=== PATIENT | male | born 1965 | race Caucasian/White ===

== ENCOUNTER 2017-09-23 09:51 | Observation (INO) | payer OTHER ==
[2017-09-23] MEDS ORDERED: Diltiazem IV* 5 MG/ML 5 ML VIAL (for loading dose/IV Push) (25 MG) IV SLOW PU ONE (10:39)
[2017-09-23 10:46] LABS: Mean Corpuscular HGB Conc 34 g/dl (31-36)
[2017-09-23 10:48] LABS: ABS Basophils 0.1 10^3/ul (0-0.2); ABS Eosinophils 0.2 10^3/ul (0-0.6); ABS Lymphocytes 1.5 10^3/ul (1.0-4.8); ABS Monocytes 0.9 10^3/ul (0-0.8); ABS Neutrophils 4.9 10^3/ul (1.5-7.7); ABS Nucleated RBC 0.02 10^3/ul; Hematocrit 44 % (42-52); Hemoglobin 15.2 g/dl (14.0-18.0); Lymphocyte % 19.7 % (25-47); Mean Corpuscular Hemoglobin 30 pg (27-31); Mean Corpuscular Volume 89 fL (80-94); Mean Platelet Volume 8 um3 (7.4-10.4); Nucleated Red Blood Cells % 0.2; Platelet Count 211 10^3/ul (150-450); Red Blood Count 4.98 10^6/ul (4.0-5.4); Red Cell Distribution Width 14 % (10.5-15); White Blood Count 7.7 10^3/ul (3.5-10.8)
--- NOTE | 2017-09-23 11:03 | RAD ---
HISTORY: Palpitation COMPARISONS: None VIEWS: 2: frontal portable view of the chest at 10:10 AM FINDINGS: LINES AND TUBES: None. CARDIOMEDIASTINAL SILHOUETTE: The cardiomediastinal silhouette is normal for portable technique. PLEURA: The costophrenic angles are sharp. No pleural abnormalities are noted. LUNG PARENCHYMA: The lungs are clear. ABDOMEN: The upper abdomen is clear. There is no subphrenic gas. BONES AND SOFT TISSUES: No bone or soft tissue abnormalities are noted. IMPRESSION: NO ACTIVE CARDIOPULMONARY DISEASE.
[2017-09-23 11:07] LABS: EGFR Non-African American 81.6 (>60)
[2017-09-23] MEDS: Apixaban* 5 MG TAB PO SCH ×2 (13:10→21:06)
[2017-09-23] MEDS: Metoprolol Tartrate TAB* 25 MG PO SCH ×2 (13:10→21:06)
[2017-09-23] MEDS ORDERED: Perflutren Lipid Microsphere* 3 ML VIAL ONE (13:28)
--- NOTE | 2017-09-23 15:22 | ECHO ---
Patient: ENIO BARTON [facility] Rec#: [id number] : 1965 Date: 09/23/2017 Age: 52y Height: 182.88 cm / 72.0 in Weight: 136.08 kg / 299.9 lbs Sex: M BSA: 2.53 Room#: 453 Admit Date#: 09/23/2017 Type: Inpatient Referring: Sushil Thompson MD Reading: Sushil Thompson MD Licensing Representative: Aditi CarsonCROWN[facility],RD[facility] Transthoracic Echocardiogram Indication: Aflutter BP: 149/74 HR: 131 Rhythm: A-Flutter Findings History: HTN Technical Comments: The study is technically limited due to poor acoustic windows. Left Ventricle: The left ventricular chamber size is normal. Mild to moderate concentric left ventricular hypertrophy is observed. Mild global hypokinesis of the left ventricle is observed. There is mildly decreased left ventricular systolic function. The estimated ejection fraction is 45-50%. The assessment of diastolic function is non-diagnostic. Left Atrium: The left atrium is moderately dilated. Right Ventricle: The right ventricle wall thickness is moderately increased. The right ventricular cavity size is normal. The right ventricular global systolic function is normal. Right Atrium: The right atrium is mild to moderately dilated. Aortic Valve: There is no evidence of aortic valve thickening. Systolic excursion of the aortic valve is normal. There is a trace of aortic regurgitation. There is no evidence of aortic stenosis. Mitral Valve: The mitral valve leaflets appear normal. There is no evidence of mitral regurgitation. There is no evidence of mitral stenosis. Tricuspid Valve: The tricuspid valve leaflets are normal. There is trace tricuspid regurgitation. No pulmonary hypertension is noted. Pulmonic Valve: The pulmonic valve appears normal. There is a trace pulmonic regurgitation. Pericardium: There is no significant pericardial effusion. Aorta: There is moderate dilatation of the ascending aorta.4.2 cm There is mild dilatation of the aortic arch. There is mild dilatation of the aortic root. Pulmonary Artery: The main pulmonary artery is not well visualized. Venous: The inferior vena cava appears normal in size. There is a greater than 50% respiratory change in the inferior vena cava dimension. Contrast: Definity was used to optimize study. A total of 2.5 ml was used Summary: There was not any prior study for comparison. Conclusions Mild to moderate concentric left ventricular hypertrophy is observed. Mild global hypokinesis of the left ventricle is observed. The estimated ejection fraction is 50%. The assessment of diastolic function is non-diagnostic. The right ventricular global systolic function is normal. Systolic excursion of the aortic valve is normal. There is a trace of aortic regurgitation. There is no evidence of mitral regurgitation. There is trace tricuspid regurgitation. No pulmonary hypertension is noted. There is moderate dilatation of the ascending aorta.4.2 cm Measurements Name Value Normal Range RVIDd (AP) 2D 3.2 cm (0.9 - 2.6) RVDdMajor (2D) 3.1 cm (2.2 - 4.4) RAd ISD 4CH 6 cm (3.4 - 4.9) RA (A4C)W 4.8 cm (2.9 - 4.6) IVSd (2D) 1.4 cm (0.6 - 1) LVPWd (2D) 1.3 cm (0.6 - 1) LVIDd (2D) 4.1 cm (3.6 - 5.4) LVIDs (2D) 3.5 cm - LV FS (2D) 15 % (25 - 45) Aortic Annulus 2.3 cm (1.4 - 2.6) Ao root diameter (2D) 4 cm (2.1 - 3.5) Ascending Ao 4.2 cm (2.1 - 3.4) Aortic arch 3.9 cm (1.8 - 3.4) LA dimension (AP) 2D 5.2 cm (2.3 - 3.8) LAd ISD 4CH 6.3 cm (2.9 - 5.3) LA ISD 4CH W 4.1 cm (2.5 - 4.5) Name Value Normal Range LA ESV SP 4CH (A/L) 58.39 ml - LA ESV SP 4CH (MOD) 53.37 ml - Name Value Normal Range MV E-wave Vmax 0.9 m/sec - MV deceleration time 64 msec - LV lateral e' Vmax 0.1 m/sec - LV E:e' lateral ratio 9 ratio - Name Value Normal Range AV Vmax 1 m/sec - AV peak gradient 4 mmHg - LVOT Vmax 0.9 m/sec - LVOT peak gradient 3.2 mmHg - Name Value Normal Range TR Vmax 2.4 m/sec - TR peak gradient 23 mmHg - RAP 3 mmHg - RVSP 26 mmHg - IVC diameter 2 cm - Name Value Normal Range PV Vmax 0.6 m/sec - PV peak gradient 1.4 mmHg -
--- NOTE | 2017-09-23 20:33 | CONS ---
CARDIOLOGY CONSULTATION:/HISTORY AND PHYSICAL DATE OF CONSULT: 09/23/17 INDICATION FOR CONSULTATION: Atrial flutter. HISTORY OF PRESENT ILLNESS: The patient is a 52-year-old gentleman with a history of hypertension, sleep apnea, obesity, who went to [facility] today because of a head cold. The patient states that he has been having cough and runny nose for approximately 6 days. He had no other complaints. He had no fevers or chills. He had no palpitations. No lightheadedness, dizziness, or syncope. No angina. On arrival to [facility], his heart rate was 150 and an EKG showed atrial flutter with 2:1 conduction. The patient was transported over to the emergency room. In speaking with the patient, the patient states that he really has felt well for the past week except for this head cold. He denies any history of arrhythmia. He denies any cardiac history. PAST MEDICAL HISTORY: Significant for obesity, hypertension, and sleep apnea. PAST SURGICAL HISTORY: None. OUTPATIENT MEDICATIONS: 1. Norvasc 10 mg a day. 2. Omeprazole 20 mg a day. ALLERGIES: To PENICILLIN. SOCIAL HISTORY: He denies tobacco use. He drinks 12 to 18 beers a day. He does not get any regular exercise. He is . He works as a salesman. He has 3 daughters. REVIEW OF SYSTEMS: Negative for fevers and chills. Negative for changes in bowel or bladder habits. Negative for changes in weight. Other 12-point review is negative. PHYSICAL EXAM: Height is 6 feet 1 inch, weight is 300 pounds. Heart rate is 127, blood pressure 142/89, respiratory rate is 14, oxygen saturation 97% on room air, temperature 98.5. Sclerae anicteric. Oropharynx is pink without erythema. Carotids are 2+ without bruits. JVD is normal. Thyroid is normal. Cardiac Exam: Tachycardic. S1, S2 without any murmurs, rubs, or gallops. Lungs are clear to auscultation bilaterally. There is no dullness to percussion. Abdomen is obese, soft, nontender, nondistended with normoactive bowel sounds. Extremities show no edema. He has 2+ pulses throughout. The patient is awake, alert, and oriented. He moves all 4 extremities equally. LABORATORY STUDIES: CBC within normal limits. Chemistries within normal limits. AST and ALT are normal. Troponins are negative x2. TSH 1.73. IMPRESSION: This is a 52-year-old gentleman with a history of hypertension, sleep apnea, who went to [facility] because of a head cold and was found to be in atrial flutter with a heart rate of 150. It is unclear how long he has been in this abnormal rhythm. The patient did get an echocardiogram today, which showed low normal LV systolic function, ejection fraction of 50%, no evidence of valvular abnormalities. For now, recommendation is to start anticoagulation. The patient will be started on beta-blue for heart rate control. The patient will be considered for AMANDA cardioversion. [id number]/[facility] #: [id number] LM
[2017-09-24] MEDS ORDERED: amLODIPine TAB* 5 MG PO ONE (05:00)
[2017-09-24] MEDS ORDERED: Metoprolol Tartrate IV* 1 MG/ML 5 ML VIAL IV ONE (05:00)
[2017-09-24] MEDS ORDERED: Omeprazole CAP* 20 MG PO SCH (07:30)
[2017-09-24] MEDS ORDERED: amLODIPine TAB* 5 MG PO SCH (09:00)
[2017-09-24] MEDS ORDERED: Naloxone* 0.4 MG/ML 1 ML VIAL ONE (09:19)
[2017-09-24] MEDS ORDERED: Lidocaine 2% VISCOUS* 15 ML UDC ONE (09:19)
[2017-09-24] MEDS ORDERED: Flumazenil* 0.1 MG/ML 5 ML MDV ONE (09:19)
[2017-09-24] MEDS ORDERED: fentaNYL* 50 MCG/ML 2 ML VIAL (100 MCG VIAL) ONE ×2 (09:19→09:21)
[2017-09-24] MEDS ORDERED: Midazolam* 1 MG/ML 10 ML VIAL (10 MG) ONE (09:20)
--- NOTE | 2017-09-24 11:04 | CARD ---
CC: Dr. Thompson ELECTRICAL CARDIOVERSION: DATE OF PROCEDURE: 09/24/17 PROCEDURE: Electrical cardioversion. The patient had undergone transesophageal echo prior to the procedure. He required a total of 150 mc g of fentanyl and 15 mg of Versed for the transesophageal echo. The patient had an additional 2 mg of Versed following the transesophageal echo for cardioversion. DESCRIPTION OF PROCEDURE: The indications, risks, and benefits for both procedures had been discusse d in depth with the patient. A time-out procedure was called. A transesophageal echo was done and n o thrombus was seen in the appendage and a decision was made to proceed with electrical cardioversion . Using AP patches, 120 joules was synchronously delivered across the chest wall with successful cardio version from atrial flutter with a rapid ventricular rate of around 125 beats a minute to normal sinu s rhythm. He was hemodynamically stable throughout the procedure, transient drop in saturations whic h responded to 2 L nasal cannula and head positioning. He is currently in sinus rhythm at 91 beats a minute, oxygen saturation 97% on 2 L nasal cannula, respiratory rate is 19, and blood pressure 138/8 8. There were no complications. CONCLUSION: Successful electrical cardioversion from atrial flutter to normal sinus rhythm. [id number]/[facility] #: [id number]
[2017-09-24] MEDS: Apixaban* 5 MG TAB PO SCH (11:15)
[2017-09-24] MEDS: Metoprolol Tartrate TAB* 25 MG PO SCH (11:15)
[2017-09-24 13:23] VITALS: BP 108/76
--- NOTE | 2017-09-24 14:55 | TEE ---
Patient: ENIO BARTON [facility] Rec#: [id number] : 1965 Date: 09/24/2017 Age: 52y Height: 185 cm / 72.8 in Weight: 136 kg / 299.7 lbs Sex: M BSA: 2.55 Room#: 453 Admit Date#: 09/23/2017 Type: Inpatient Referring: Sushil Thompson MD Performing: Vangie Pearson MD Reading: Vangie Pearson MD Forepart Reducer: Aditi Carson RD,RDMS Nurse: Belen Vela RN Transesophageal Echocardiogram Indication: AFLUTTER BP: 143/104 Rhythm: A-Flutter Findings History: HTN, obesity Technical Comments: The study quality is good. Left Ventricle: The left ventricular chamber size is normal. Mild concentric left ventricular hypertrophy is observed. Left ventricular systolic function is at the lower limits of normal. The estimated ejection fraction is 45-50%. The assessment of diastolic function is non-diagnostic. Left Atrium: The left atrium is mild to moderately dilated. Spontaneous echo contrast is present in the left atrium cavity and appendage. There is no thrombus visualized in the left atrial appendage. Right Ventricle: The right ventricular cavity size is normal. The right ventricular global systolic function is low normal. Right Atrium: The right atrium is mildly dilated. A patent foramen ovale is demonstrated by agitated contrast. There is evidence of an atrial septal aneurysm. Aortic Valve: The aortic valve is trileaflet. There is no evidence of aortic valve thickening. Systolic excursion of the aortic valve is normal. There is a trace of aortic regurgitation. There is no evidence of aortic stenosis. Mitral Valve: The mitral valve leaflets appear normal. There is trace to mild mitral regurgitation. There is no evidence of mitral stenosis. Tricuspid Valve: The tricuspid valve leaflets are normal. There is trace tricuspid regurgitation. Pulmonic Valve: The pulmonic valve appears normal. There is no evidence of pulmonic regurgitation. Pericardium: There is no significant pericardial effusion. Aorta: There is mild dilatation of the ascending aorta. There is mild dilatation of the aortic root. Pulmonary Artery: The main pulmonary artery appears normal. Venous: The inferior vena cava appears normal. The flow pattern of the pulmonary veins appear normal. All 4 well visualized The superior vena cava appears normal. AMANDA Procedures: All standard views were attempted within the limitations of patient tolerance and safety. History and physical as well as labs were reviewed. The patient was in a fasting state. Risks and benefits of the procedure, including alternatives, were discussed and written informed consent was obtained. The patient and/or their health care physician relations representative expressed understanding of the procedure, risks and benefits. Baseline and continuous monitoring of blood pressure, heart rate, pulse oximetry and heart rhythm was performed throughout the procedure. The appropriate time-out procedure was performed as per [facility] protocol. The patient was placed in the left lateral decubitus position. The patient's posterior pharynx was anesthetized with 20ml of 2% viscous lidocaine. The patient received IV Midazolam with a total dose of 15 mg. The patient received IV Fentanyl with a total dose of 150 mcg An oral bite block was inserted for protection of oral dentition. The multiplane transesophageal echocardiogram probe was inserted through the posterior oropharynx and advanced into the esophagus without difficulty. Multiple 2D images were obtained of the heart and its related structures. Color flow Doppler was used for evaluation. Spectral Doppler was also used. The atrial septum was interrogated with color flow Doppler. At the conclusion of the procedure the probe was removed with continuous suction without complications. The patient tolerated the procedure with no apparent complications. Contrast: Intravenous agitated saline contrast was used to assess intracardiac shunting. Conclusions The patient was in atrial flutter with a rapid ventricular rate throughout the study. Mild concentric left ventricular hypertrophy is observed. Left ventricular systolic function is at the lower limits of normal. The estimated ejection fraction is 45-50%. The right ventricular global systolic function is low normal. The left atrium is mild to moderately dilated. There is no thrombus visualized in the left atrial appendage. Spontaneous echo contrast is present in the left atrium cavity and appendage. A patent foramen ovale is demonstrated by agitated contrast. There is a trace of aortic regurgitation. There is trace to mild mitral regurgitation. There is trace tricuspid regurgitation. There is mild dilatation of the ascending aorta: 3.7 cm. Compared with transthoracic echo of 09/23/17, EF is stable, MR newly noted, PFO newly noted. aorta diameter on that study measured at 4.2 cm. Measurements Name Value Normal Range Aortic Annulus 2 cm (1.4 - 2.6) Ao root diameter (2D) 3.8 cm (2.1 - 3.5) Ascending Ao 3.7 cm (2.1 - 3.4) Name Value Normal Range MV E-wave Vmax 0.7 m/sec - MV deceleration time 70 msec -
--- NOTE | 2017-09-25 06:14 | DS ---
CC: Dr. Sushil Thompson * DISCHARGE SUMMARY: DATE OF ADMISSION: DATE OF DISCHARGE: 09/24/17 HISTORY OF PRESENT ILLNESS: Mr. Cheema is a 52-year-old gentleman with a past medical history of hypertension, obesity, and sleep apnea. The patient had had several weeks of cold symptoms. He started with a runny nose, rhinorrhea, cough and just was not getting better and he presented to [facility] because of this and was found to be tachycardic and EKG was consistent with atrial flutter. He was advised to come to the emergency department and ECGs here also confirmed atrial flutter with a rapid ventricular response. The patient underwent a transthoracic echo. Metoprolol was added to his outpatient medications of Norvasc and omeprazole, was improved, but not completely controlled ventricular rate. Today, the day of discharge after being placed on blood thinners overnight, the patient underwent successful transesophageal echo-guided cardioversion and he says he feels much better now that he is in sinus rhythm. He thinks his breathing and congestion is now better. His concurs that he seems to look a lot better than he did before admission. PAST MEDICAL HISTORY: The patient has a past medical history of: 1. Hypertension. 2. Sleep apnea (per chart, the patient denies). 3. Obesity. OUTPATIENT MEDICATIONS: Included: 1. Norvasc 10 mg a day. 2. Omeprazole. ALLERGIES: PENICILLIN. SOCIAL HISTORY: He was drinking 12 to 18 beers a day. He states over the last 6 months or so, he is put on over 20 pounds and has not exercise regularly in a month. He is with a supportive . PHYSICAL EXAMINATION: Exam at discharge, the patient is 6 feet 1 inch, weighs 316 pounds with a BMI of 42. Vitals post cardioversion showed a pulse of 80, blood pressure 108/76, sats 97% on room air, and T-max at 4 in the morning this morning was 99.1. General Appearance: Very overweight, predominantly centripetally obese, older middle-aged gentleman, seated in no acute distress. Psychologically, pleasant, cooperative, jovial. Neurologically, awake, alert, oriented to person, place, and time. Cranial nerves II through XII intact. Grossly normal sensory and motor function in the upper and lower extremities and normal gait. Skin: Warm, dry. No cyanosis or rashes. Age-appropriate changes. Respirations are distant, but clear. No wheezing, rales, or rhonchi. Coronary: S1, S2, regular, distant. No murmurs appreciated. Abdomen: Rotund. Active bowel sounds, soft and nontender. Lower extremities are free of edema and warm. DIAGNOSTIC STUDIES/LAB DATA: White count 7.7, hemoglobin 15.2, hematocrit 44, platelets 211, mild increase in monos noted. Sodium 133, potassium 4.3, chloride 100, bicarb 25, BUN 11, creatinine 0.97, glucose 119, lactic acid 1.3. ALT is 17. Troponin #1 0.01, #2 0.00, troponin #3 0.01. TSH 1.73 and free T4 is 0.83. Transesophageal echo done today showed mild left ventricular hypertrophy with an ejection fraction of 45% to 50%. RV systolic function was in the low range of normal. The left atrium was enlarged. No thrombus was noted in the left atrial appendage, although there was some spontaneous contrast. A patent foramen ovale was seen with a bubble study. All valves showed good excursion, he had trace aortic insufficiency, [id number] mitral insufficiency, trace tricuspid insufficiency, mild dilatation of the ascending aorta at 3.7 cm. A 12-lead ECG on admission on 09/23 at 10 in the morning showed typical atrial flutter with 2:1 block and a ventricular rate of 147 beats a minute, QRS axis + 60, normal intraventricular conduction times, normal ST segments. A 12-lead ECG today done status post cardioversion showed normal sinus rhythm, 95 beats a minutes, QRS axis +60, normal AV and IV conduction times, and normal ST segments, corrected QT interval 447 milliseconds. IMPRESSION: In summary, Mr. Randy Cheema is a 52-year-old gentleman, who presented with atrial flutter of uncertain duration as he is unaware he was in it. He may have had indirect symptoms of persistent shortness of breath. Flutter risks include his heavy beer drinking, age, morbid obesity, possible sleep apnea, recent respiratory infection. On discharge, he was strongly advised to avoid drinking completely for at least a week and then to cut way down to a maximum of 6 ounce of beer a night or equivalent. The above potential contributions to his dysrhythmia were discussed in depth in the presence of his and optimization of diet and lifestyle in general were discussed as well. He will be discharged home on Norvasc 10 mg a day. His omeprazole with a new addition of Toprol-XL 25 mg a day and Eliquis 5 mg b.i.d. with tentative plans to leave anticoagulation on for 1 month. The patient had asked questions about exercise and he turns out he takes Cialis , I okayed both. He will follow up with Dr. Thompson within 1 month and noticed to call at anytime with any questions or recurrence of the symptoms that brought him in. [id number]/[facility] #: [id number] MTDD
--- NOTE | 2017-10-09 10:29 | ED ---
Sylvester Gonzales Angela scribed for Noel Hernández MD on 09/23/17 at 1034 . Palpitations / Dysrhythmia - HPI Summary HPI Summary: This pt is a 52 y/o male presenting to [facility] referred by [facility] for rapid heart rate. Pt notes he has had a cough, sinus congestion, cold sweats x12 days. He reports a productive cough with a lot of sputum. Pt has been taking a tussin cough medicine with mild relief. He states that he has come chest pain secondary to cough. Pt has never had rapid palpitations in the past. He currently denies chest pressure, tightness, SOB, fatigue, lightheadedness, dizziness. Pt states he has not eaten this morning or taken any of his medications. Pt is currently on omeprazole and amlodipine. PMHx includes HTN , torn bicep repair on right arm, bilateral meniscus repairs, pin to right thumb. - History of Current Complaint Chief Complaint: EDDysrhythmPalp Hx Obtained From: Patient Onset/Duration: Lasting Hours, Still Present Timing: Constant Severity Currently: Severe Character: Fast Aggravating: Nothing Alleviating: Nothing Associated Signs & Symptoms: Negative - Allergy/Home Medications Allergies/Adverse Reactions: Allergies Allergy/AdvReac Type Severity Reaction Status Date / Time Penicillins Allergy Unknown Verified 09/23/17 10:26 Reaction Details Sulfa Antibiotics Allergy Rash And Verified 09/23/17 10:27 Itching Home Medications: Home Medications Omeprazole CAP* [Prilosec CAP* 20 MG] 20 mg PO DAILY 09/23/17 [History Confirmed 09/23/17] amLODIPine TAB* [Norvasc 5 mg TAB*] 5 mg PO DAILY 09/23/17 [History Confirmed ] PMH/Surg Hx/FS Hx/Imm Hx Endocrine/Hematology History: Denies: Hx Diabetes Cardiovascular History: Reports: Hx Hypertension - Surgical History Surgery Procedure, Year, and Place: torn bicep repair on right arm. bilateral meniscus repairs. pin to right thumb. Infectious Disease History: No Infectious Disease History: Denies: Traveled Outside the [place] in Last 30 Days - Family History Known Family History: Positive: Other - Father: afib, palpitations - Social History Alcohol Use: Weekly Alcohol Amount: 5 days / week Substance Use Type: Reports: None Smoking Status (MU): Never Smoked Tobacco Review of Systems Positive: Skin Diaphoresis - cold sweats. Negative: Fever, Chills, Fatigue Negative: Erythema ENT: Other - sinus congestion Negative: Sore Throat Positive: Palpitations - rapid heart rate, Chest Pain - secondary to cough Positive: Cough. Negative: Shortness Of Breath Negative: Abdominal Pain, Vomiting, Nausea Negative: dysuria, hematuria Negative: Myalgia, Edema Negative: Rash Neurological: Other - NEG: dizziness All Other Systems Reviewed And Are Negative: Yes Physical Exam - Summary Physical Exam Summary: Constitutional: Well-developed, Well-nourished, Alert. (-) Distressed Skin: Warm, Dry HENT: Normocephalic; Atraumatic Eyes: Conjunctiva normal Neck: Musculoskeletal ROM normal neck. (-) JVD, (-) Stridor, (-) Tracheal deviation Cardio: Rhythm regular, rate normal, Heart sounds normal; Intact distal pulses; The pedal pulses are 2+ and symmetric. Radial pulses are 2+ and symmetric. (-) Murmur Pulmonary/Chest wall: Effort normal. (-) Respiratory distress, (-) Wheezes, (-) Rales Abd: Soft, (-) Tenderness, (-) Distension, (-) Guarding, (-) Rebound Musculoskeletal: (-) Edema Lymph: (-) Cervical adenopathy Neuro: Alert, Oriented x3 Psych: Mood and affect Normal Triage Information Reviewed: Yes Vital Signs On Initial Exam: Initial Vitals Temp Pulse Resp BP Pulse Ox 98.5 F 154 20 143/121 98 09/23/17 09:55 09/23/17 09:55 09/23/17 09:55 09/23/17 09:55 09/23/17 09:55 Vital Signs Reviewed: Yes - Zohaib Coma Scale Coma Scale Total: 15 Diagnostics - Vital Signs Vital Signs Temp Pulse Resp BP Pulse Ox 09/23/17 10:10 149 20 149/74 98 09/23/17 10:07 102 20 100 09/23/17 09:55 98.5 F 154 20 143/121 98 - Laboratory Lab Results: Lab Results 09/23/17 09/23/17 09/23/17 Range/Units 10:15 10:15 10:15 WBC 7.7 (3.5-10.8) 10^3/ul RBC 4.98 (4.0-5.4) 10^6/ul Hgb 15.2 (14.0-18.0) g/dl Hct 44 (42-52) % MCV 89 (80-94) fL MCH 30 (27-31) pg MCHC 34 (31-36) g/dl RDW 14 (10.5-15) % Plt Count 211 (150-450) 10^3/ul MPV 8 (7.4-10.4) um3 Neut % (Auto) 64.1 (38-83) % Lymph % (Auto) 19.7 L (25-47) % [place] % (Auto) 12.4 H (1-9) % Eos % (Auto) 3.0 (0-6) % Baso % (Auto) 0.8 (0-2) % Absolute Neuts (auto) 4.9 (1.5-7.7) 10^3/ul Absolute Lymphs (auto) 1.5 (1.0-4.8) 10^3/ul Absolute Monos (auto) 0.9 H (0-0.8) 10^3/ul Absolute Eos (auto) 0.2 (0-0.6) 10^3/ul Absolute Basos (auto) 0.1 (0-0.2) 10^3/ul Absolute Nucleated RBC 0.02 10^3/ul Nucleated RBC % 0.2 Sodium 133 (133-145) mmol/L Potassium 4.3 (3.5-5.0) mmol/L Chloride 100 L (101-111) mmol/L Carbon Dioxide 25 (22-32) mmol/L Anion Gap 8 (2-11) mmol/L BUN 11 (6-24) mg/dL Creatinine 0.97 (0.67-1.17) mg/dL Est GFR ( Amer) 104.9 (>60) Est GFR (Non-Af Amer) 81.6 (>60) BUN/Creatinine Ratio 11.3 (8-20) Glucose 119 H (70-100) mg/dL Lactic Acid 1.3 (0.5-2.0) mmol/L Calcium 9.8 (8.6-10.3) mg/dL Magnesium 2.0 (1.9-2.7) mg/dL Total Bilirubin 0.50 (0.2-1.0) mg/dL AST 20 (13-39) U/L ALT 17 (7-52) U/L Alkaline Phosphatase 73 (34-104) U/L Troponin I 0.01 (<0.04) ng/mL Total Protein 8.1 (6.4-8.9) g/dL Albumin 4.4 (3.2-5.2) g/dL Globulin 3.7 (2-4) g/dL Albumin/Globulin Ratio 1.2 (1-3) TSH 1.73 (0.34-5.60) mcIU/mL Free T4 0.83 (0.61-1.12) ng/dL Result Diagrams: 09/23/17 10:15 09/23/17 10:15 Lab Statement: Any lab studies that have been ordered have been reviewed, and results considered in the medical decision making process. - Radiology Chest XR Xray Interpretation: No Acute Changes - IMPRESSION: No active cardiopulmonary disease. Dr. Hernández has reviewed this radiology report. Radiology Interpretation Completed By: Radiologist - EKG 10:08 Cardiac Rate: Tachycardia EKG Rhythm: Atrial Flutter - at 147 bpm EKG Interpretation: with 2:1 AV block Course/Dx - Course Course Of Treatment: This pt is a 52 y/o male presenting to [facility] referred by [facility] for rapid heart rate. Pt notes he has had a cough, sinus congestion, cold sweats x12 days. He reports a productive cough with a lot of sputum. Pt has been taking a tussin cough medicine with mild relief. He states that he has come chest pain secondary to cough. Pt has never had rapid palpitations in the past. He currently denies chest pressure, tightness, SOB, fatigue, lightheadedness, dizziness. Pt states he has not eaten this morning or taken any of his medications. Pt is currently on omeprazole and amlodipine. Chest XR shows no active cardiopulmonary disease. EKG shows atrial flutter at 147 bpm with 2:1 AV block. In the ED course, the pt was given cardizem and 1L NS bolus. I discussed the pt's case with Dr. Thompson, cardiolgist, who will admit the pt. - Diagnoses Provider Diagnoses: Atrial flutter with rapid ventricular response - Physician Notifications Discussed Care Of Patient With: Sushil Thompson Time Discussed With Above Provider: 10:39 Instructed by Provider To: Other - I discussed the pt's case with Dr. Thompson, who will admit the pt. - Critical Care Time Critical Care Time: 30-74 min - 45 minutes Discharge - Discharge Plan Condition: Stable Disposition: ADMITTED TO [facility] documentation as recorded by the Sylvester arnold Angela accurately reflects the service I personally performed and the decisions made by me, Noel Hernández MD.
== END 2017-09-24 16:26 | disposition home or self-care (01) ==
LOC: ED 09:51 → MEDTELE 10:43
PROVIDERS: ADMIT Specialist; ATTEND Specialist
DX: I48.92 Unspecified atrial flutter (principal); I10 Essential (primary) hypertension; E66.9 Obesity, unspecified; G47.30 Sleep apnea, unspecified; Z88.0 Allergy status to penicillin; Z68.41 Body mass index [BMI] 40.0-44.9, adult
CPT/HCPCS: 36415; 71010; 80053; 83605; 83735; 84439; 84443; 84484; 85025; 87040; 92960; 93005; 93306; 93312; 93325; 99156; 99157; 99284; A9270-GY; C8929; G0378; J2250; J2310; J3010; J3490

== ENCOUNTER 2024-06-18 06:38 | Observation (INO) ==
[~2024-06-18 06:38] MED LIST: Metoclopramide 5 MG/ML VIAL (10 mg) IV PRN; NS 0.45% 1000 ml BAG 1,000 ML IV SCH; Naloxone 0.4 mg VIAL 0.4 mg/ml 1 ml VIAL IV PRN; Ondansetron 4 mg VIAL 2 MG/ML 2 ml VIAL IV PRN; fentaNYL 100 mcg/2 ml 50 MCG/ML VIAL IV PRN
[2024-06-18 07:44] LABS: Rapid COVID-19 Molecular Undetected (Undetected)
[2024-06-18] MEDS ORDERED: Tranexamic Acid 1 GM/100ML BAG 2,000 MG/200 ML BAG IV ONE (07:44)
[2024-06-18] MEDS ORDERED: ceFAZolin 2 GM PREMIX 2 GM/50 ML BAG ONE (07:44)
[2024-06-18] MEDS: Buffered Lidocaine 1% SYRIN 1 ml INTRADERM ONE (07:59)
[2024-06-18] MEDS: Lactated Ringers 1000 ml BAG 1,000 ML IV SCH ×2 (07:59→14:53)
[2024-06-18] MEDS: Scopolamine 1 mg/72hr PATCH TRANSDERM ONE (08:00)
[2024-06-18] MEDS ORDERED: Lidocaine 2% PF 5 ML VIAL ONE (08:14)
[2024-06-18] MEDS ORDERED: fentaNYL 100 mcg/2 ml 50 MCG/ML VIAL ONE (08:14)
[2024-06-18] MEDS ORDERED: Propofol 10 MG/ML 20 ML BTL ONE ×2 (08:14→11:46)
[2024-06-18] MEDS ORDERED: Rocuronium 50 mg VIAL 10 mg/ml 5 ml VIAL (50 mg) ONE ×2 (08:14→10:30)
[2024-06-18] MEDS ORDERED: Midazolam 2 mg/2 ml VIAL 1 mg/ml 2 ml VIAL (2 mg) ONE (08:14)
[2024-06-18] MEDS ORDERED: Sodium Chloride 0.9% 10 ML ONE ×2 (08:18→11:00)
[2024-06-18] MEDS ORDERED: Ondansetron 4 mg VIAL 2 MG/ML 2 ml VIAL ONE (10:35)
[2024-06-18] MEDS ORDERED: Dexamethasone IV 4 MG/ML VIAL 1 ml VIAL ONE (10:35)
[2024-06-18] MEDS ORDERED: HYDROmorphone 0.5 MG/0.5 ML SYRINGE ONE ×3 (10:44→11:47)
[2024-06-18] MEDS ORDERED: ceFAZolin VIAL VIAL ONE (10:52)
[2024-06-18] MEDS ORDERED: Magnesium Hydroxide LIQ 30 ML UDC PO PRN (13:06)
[2024-06-18] MEDS ORDERED: Ondansetron 4 mg VIAL 2 MG/ML 2 ml VIAL IV PRN (13:06)
[2024-06-18] MEDS ORDERED: Ondansetron ODT 4 mg TAB 4 MG TAB PO PRN (13:06)
[2024-06-18] MEDS ORDERED: Morphine 2 MG/ML SYRINGE IV PRN (13:06)
[2024-06-18] MEDS ORDERED: Lactulose 30 ml UDC PO PRN (13:06)
[2024-06-18] MEDS ORDERED: Calcium Carb (TUMS) 500 mg CHEW TAB PO PRN (13:06)
[2024-06-18] MEDS: Acetaminophen IV 1 GM/100ML 1,000 MG/100 ML BAG IV ONE (14:45)
[2024-06-18] MEDS: ceFAZolin 2 GM PREMIX 2 GM/50 ML BAG IV SCH (18:00)
[2024-06-18 19:00] VITALS: BP 135/78
[2024-06-18] MEDS ORDERED: Magnesium Hydroxide LIQ 30 ML UDC PO SCH (21:00)
[2024-06-19] MEDS ORDERED: Vitamin THERAPEUTIC TAB PO SCH (09:00)
== END 2024-06-18 19:00 | disposition home or self-care (01) ==
LOC: OR 06:38 → SSU 06:38
PROVIDERS: ADMIT Orthopaedic Surgery Adult Reconstructive Orthopaedic Surgery; ATTEND Orthopaedic Surgery Adult Reconstructive Orthopaedic Surgery

== ENCOUNTER 2024-10-15 06:37 | Observation (INO) ==
[2024-10-15] MEDS ORDERED: Propofol 10 MG/ML 20 ML BTL ONE ×2 (07:06→09:09)
[2024-10-15] MEDS ORDERED: Tranexamic Acid 1 GM/100ML BAG 2,000 MG/200 ML BAG IV ONE (07:38)
[2024-10-15] MEDS ORDERED: ceFAZolin 1 GM in Dextrose 1 GM/50 ML BAG ONE (07:39)
[2024-10-15] MEDS ORDERED: ceFAZolin 2 GM PREMIX 2 GM/50 ML BAG ONE (07:39)
[2024-10-15] MEDS: Acetaminophen IV 1 GM/100ML 1,000 MG/100 ML BAG IV ONE (07:55)
[2024-10-15] MEDS: Buffered Lidocaine 1% SYRIN 1 ml INTRADERM ONE (07:55)
[2024-10-15] MEDS: Lactated Ringers 1000 ml BAG 1,000 ML IV SCH ×2 (07:56→13:50)
[2024-10-15] MEDS: Scopolamine 1 mg/72hr PATCH TRANSDERM ONE (07:56)
[2024-10-15 08:02] LABS: Rapid COVID-19 Molecular Undetected (Undetected)
[2024-10-15] MEDS ORDERED: fentaNYL 100 mcg/2 ml 50 MCG/ML VIAL ONE (08:04)
[2024-10-15] MEDS ORDERED: Dexamethasone IV 4 MG/ML VIAL 1 ml VIAL ONE (08:04)
[2024-10-15] MEDS ORDERED: Midazolam 2 mg/2 ml VIAL 1 mg/ml 2 ml VIAL (2 mg) ONE (08:04)
[2024-10-15] MEDS ORDERED: Lidocaine 2% PF 5 ML VIAL ONE (08:04)
[2024-10-15] MEDS ORDERED: Ondansetron 4 mg VIAL 2 MG/ML 2 ml VIAL ONE (08:04)
[2024-10-15] MEDS ORDERED: ROPIVACAINE 5 MG/ML 30 ML BTL (0.5%) ONE (09:11)
[2024-10-15] MEDS ORDERED: Rocuronium 50 mg VIAL 10 mg/ml 5 ml VIAL (50 mg) ONE (09:24)
[2024-10-15] MEDS ORDERED: Levalbuterol HFA INHALER MDI ONE (09:24)
[2024-10-15] MEDS ORDERED: Magnesium Hydroxide LIQ 30 ML UDC PO PRN (09:34)
[2024-10-15] MEDS ORDERED: Morphine 2 MG/ML SYRINGE IV PRN (09:34)
[2024-10-15] MEDS ORDERED: Calcium Carb (TUMS) 500 mg CHEW TAB PO PRN (09:34)
[2024-10-15] MEDS ORDERED: Ondansetron 4 mg VIAL 2 MG/ML 2 ml VIAL IV PRN (09:34)
[2024-10-15] MEDS ORDERED: Ondansetron ODT 4 mg TAB 4 MG TAB PO PRN (09:34)
[2024-10-15] MEDS ORDERED: Lactulose 30 ml UDC PO PRN (09:34)
[2024-10-15] MEDS ORDERED: HYDROmorphone 0.5 MG/0.5 ML SYRINGE ONE ×2 (09:57→11:40)
[2024-10-15] MEDS: ceFAZolin *3* GM in NS PREMIX 3 GM/100 ML BAG IV SCH (15:38)
[2024-10-15 16:49] VITALS: BP 128/73
[2024-10-15] MEDS: NS 0.9% IVPB SCH (17:25)
[2024-10-15] MEDS: CEFAZOLIN IVPB SCH (17:25)
[2024-10-15] MEDS ORDERED: ceFAZolin *3* GM in NS PREMIX 3 GM/100 ML BAG IV SCH (18:00)
[2024-10-15] MEDS ORDERED: Magnesium Hydroxide LIQ 30 ML UDC PO SCH (21:00)
[2024-10-16] MEDS ORDERED: Vitamin THERAPEUTIC TAB PO SCH (09:00)
== END 2024-10-15 17:45 | disposition home or self-care (01) ==
LOC: OR 06:37 → SSU 13:53 → INTOOBSV 13:53
PROVIDERS: ADMIT Orthopaedic Surgery Adult Reconstructive Orthopaedic Surgery; ATTEND Orthopaedic Surgery Adult Reconstructive Orthopaedic Surgery